=== PATIENT | female | born 1940 ===

== ENCOUNTER 2017-08-07 02:40 | Outpatient (CLI) | payer SELFPAY ==
[2017-08-07 10:40] LABS: HEMOGLOBIN A1C 5.2 % (4.5-6.2)
[2017-08-07 10:50] LABS: CHOL/HDL RATIO 2.69 (0.00-4.99)
== END 2017-08-07 23:59 | disposition home or self-care (01) ==
LOC: HW HEART 02:40
DX: Z00.00 Encounter for general adult medical examination without abnormal findings (principal)
CPT/HCPCS: 36415